=== PATIENT | male | born 1985 | race Caucasian/White ===

== ENCOUNTER 2018-04-16 01:20 | Emergency (ER) | payer SELFPAY ==
[~2018-04-16] VITALS: Ht 175.3 cm; Wt 90.7 kg
[2018-04-16 01:36] VITALS: BP_SYST 154
[2018-04-16] MEDS ORDERED: ONDANSETRON HCL 4 MG/2 ML VIAL IVP ONE (02:00)
[2018-04-16] MEDS ORDERED: MORPHINE 4 MG/ML INJ. SYRINGE IVP ONE (02:00)
[2018-04-16] MEDS ORDERED: IPRATROPIUM BROM 0.5 MG/2.5 ML VIAL.NEB (ATROVENT) IH ONE (02:00)
[2018-04-16] MEDS ORDERED: KETOROLAC TROMETHAMINE 15 MG VIAL IVP ONE (02:00)
[2018-04-16] MEDS ORDERED: ALBUTEROL SULFATE 0.083% 2.5 MG/3 ML VIAL.NEB IH ONE ×2 (02:00→04:45)
[2018-04-16 02:21] LABS: BASOPHILS % (AUTO) 0.4 % (0.0-2.0); EOSINOPHILS # (AUTO) 0.1 K/uL (0.0-0.4); EOSINOPHILS % (AUTO) 1.1 % (0.0-4.0); HEMATOCRIT 42.1 % (36-54); HEMOGLOBIN 14.3 g/dL (14.0-18.0); LYMPHOCYTES # (AUTO) 1.7 K/uL (1.0-5.5); MEAN CORPUSCULAR HEMOGLOBIN 30 pg (27-31); MEAN CORPUSCULAR HGB CONC 34 % (32-36); MEAN CORPUSCULAR VOLUME 89 fL (79.0-98.0); MONOCYTES # (AUTO) 0.9 K/uL (0.0-1.0); MONOCYTES % (AUTO) 7.6 % (1.7-9.3); NEUTROPHILS # (AUTO) 8.8 K/uL (1.8-7.7); NEUTROPHILS % (AUTO) 75.9 % (40.0-70.0); PLATELET COUNT (AUTO) 275 K/uL (130-430); RED BLOOD CELL COUNT(AUTO) 4.71 MIL/uL (4.2-6.2); WHITE BLOOD COUNT (AUTO) 11.5 K/uL (4.8-10.8)
[2018-04-16 02:31] LABS: CALCIUM 8.7 mg/dL (8.4-11.0); CREATININE 0.86 mg/dL (0.55-1.30); POTASSIUM 3.7 mmol/L (3.5-5.1)
[2018-04-16 02:35] LABS: ALBUMIN 3.8 g/dL (3.4-4.8); TOTAL BILIRUBIN 0.7 mg/dL (0.0-1.0)
[2018-04-16 02:37] LABS: PROTHROMBIN TIME 10.4 SECS (9.5-12.5)
[2018-04-16] MEDS ORDERED: IOHEXOL 350 mgI/mL, 150 ML INFUS..BTL IV ONE (03:24)
[2018-04-16] MEDS ORDERED: methylPREDNISolone SOD SUCC/PF 62.5 MG/ML VIAL IVP ONE (04:45)
[2018-04-16 05:20] VITALS: BP_SYST 128
== END 2018-04-16 05:20 | disposition home or self-care (01) ==
LOC: SED 01:20
DX: R07.1 Chest pain on breathing (principal); J98.11 Atelectasis; J98.01 Acute bronchospasm
CPT/HCPCS: 36415; 71045; 71275; 80053; 84484; 85025; 85379; 85610; 85730; 93005; 94640; 96374; 96375; 99285; J1885; J2270; J2405; J2930; J7613; Q9967